=== PATIENT | female | born 1955 | race Caucasian/White ===

== ENCOUNTER 2017-11-17 10:00 | Outpatient (CLI) | payer OTHER | END 2017-11-17 10:02 | LOC: LAB 10:00 | PROVIDERS: ATTEND Family Medicine | DX: E03.8 Other specified hypothyroidism (principal); E11.9 Type 2 diabetes mellitus without complications | CPT/HCPCS: 36415; 83036; 84443 ==

== ENCOUNTER 2018-03-17 08:48 | Outpatient (CLI) | payer OTHER | END 2018-03-17 08:50 | LOC: LAB 08:48 | PROVIDERS: ATTEND Family Medicine | DX: E03.9 Hypothyroidism, unspecified (principal); E11.9 Type 2 diabetes mellitus without complications | CPT/HCPCS: 36415; 83036; 84443 ==

== ENCOUNTER 2018-07-28 15:06 | Outpatient (CLI) | payer OTHER ==
[2018-07-28 15:25] LABS: MEAN CORPUSCULAR HEMOGLOBIN 30.6 pg (28.0-34.0)
[2018-07-28 15:26] LABS: BASOPHILS % 0.8 (0.0-1.5); EOSINOPHILS % 3.5 % (0.0-6.8); MONOCYTES % 6.1 % (0.0-11.0); NEUTROPHILS # 3.8 # k/uL (1.4-7.7)
[2018-07-28 15:47] LABS: eGFR (Non-African) > 60
--- NOTE | 2018-07-28 16:16 | Diagnostic Imaging Report ---
SANDRA RESTREPO [facility] [id number] [facility] [address] 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 Findings: Single view obtained of the abdomen. No abnormal dilation of the large or small bowel. Moderate stool throughout the large bowel. No suspicious calcification projecting over the renal fossa or the lower pelvic region. Lumbar degenerative changes and fixation hardware. Impression: Moderate large bowel stool. No obstruction. No suspicious calcifications by plain film sensitivity. Electronically signed on Jul 28, 2018 4:13:34 PM DIE SINKER APPRENTICE by: Woo CARO
== END 2018-07-28 15:08 ==
LOC: LAB 15:06
PROVIDERS: ATTEND Family Medicine
DX: R10.84 Generalized abdominal pain (principal)
CPT/HCPCS: 36415; 74018; 80053; 85025

== ENCOUNTER 2018-12-09 08:53 | Outpatient (CLI) | payer MEDICARE, OTHER | END 2018-12-09 08:55 | LOC: LAB 08:53 | PROVIDERS: ATTEND Family Medicine | DX: E03.9 Hypothyroidism, unspecified (principal) | CPT/HCPCS: 36415; 84443 ==

== ENCOUNTER 2019-03-02 21:09 | Emergency (ER) | payer MEDICARE, OTHER ==
--- NOTE | 2019-03-02 21:26 | ED Physician Documentation ---
Foot Injury - HISTORIAN Historian: patient - HPI Chief Complaint: Foot Injury Additional Information: Patient is a 63 year old female who presents to the ER with c/o right foot/ankle pain s/p trip today around 11:30. Patient was wearing flip flops and the right shoe rolled under causing her foot to roll forward; she initially did not feel that she was injured. She sat for awhile and when she got up to walk she was having a lot of pain. She states that she felt a pop. Onset: hours Where: home Severity: mild Context: twist Associated Symptoms:: swelling, snapping sensation, unable to bear weight Modifying Factors:: pain on movement - ROS CONST: no problems CVS/RESP: none NEURO: denies: head injury GI/: denies: nausea, vomiting MS/SKIN/LYMPH: back pain (chronic), foot swelling - PAST HX Past History: other (HTN, Hypothyroid, Depression) Immunizations: UTD Allergies/Adverse Reactions: Allergies Allergy/AdvReac Type Severity Reaction Status Date / Time povidone-iodine Allergy Unknown Verified 03/02/19 21:28 [From Betadine] soap [From Betadine] Allergy Unknown Verified 03/02/19 21:28 - SOCIAL HX Smoking History: greater than 1 pack/day Alcohol Use: occasionally Drug Use: marijuana - FAMILY HX Family History: none - REVIEWED ASSESSMENTS Nursing Assessment Reviewed: Yes Vitals Reviewed: Yes ED Results Lab/Radiology - Radiology Radiology Impressions: Right foot, three views. History: FOOT PAIN S/P MISTEPPED IN FLIP FLOPS Findings: The osseous structures are intact without acute fracture. The joint space and alignment are normal. There is no soft tissue swelling. Impression: 1. No acute osseous abnormality. Electronically signed by: Dr. Wellington Rosales Right ankle, three views History: RIGHT ANKLE TWISTED Findings: The osseous structures are intact without acute fracture. The ankle mortise is normal . There is no soft tissue swelling. Impression: 1. No acute osseous abnormality. Electronically signed by: Dr. Wellington Rosales - Orders Orders: ED Orders Category Date Time Status ANKLE 3 VIEWS OR MORE [RAD] Stat Exams 03/02/19 Ordered FOOT 3 VIEWS OR MORE [RAD] Stat Exams 03/02/19 Ordered Foot Injury Physical Exam - Physical Exam General Appearance: no acute distress, alert Foot: right foot: limited range of motion, pain, soft tissue tenderness, swelling Ankle: right: limited range of motion, soft tissue tenderness Gait: limited by pain Neuro: sensation nml, motor nml Vascular: no vascular compromise Tendons: tendon function nml Leg/Knee/Thigh: uninjured above ankle Skin: intact, warm, dry Head/ENT: nml inspection Neck/Back: tenderness Resp/CVS: breath sounds nml, heart sounds nml Discharge Clincal Impression: Contusion of right foot Referrals: Doris Howard MD [Primary Care Provider] - 2 Days Additional Instructions: Wear ijeoma wrap for support Alternate Tylenol and Ibuprofen as needed Ice and Elevate Will send refer to follow up with Dr. Campbell Condition: Stable Disposition: 01 HOME, SELF-CARE Decision to Admit: NO Decision Time: 05:00
[2019-03-02 21:31] VITALS: BP 134/68
--- NOTE | 2019-03-02 21:39 | Diagnostic Imaging Report ---
PATIENT MR#: [id number] PATIENT PATIENT NAME: CHATO TORRES DATE OF : 1955 REFERRING PHYSICIAN: Darling Turner EXAM DATE: 03/02/2019 ACCESSION NUMBER: [id number] EXAM DESCRIPTION: FOOT 3 VIEWS OR MORE Right foot, three views. History: FOOT PAIN S/P MISTEPPED IN FLIP FLOPS Findings: The osseous structures are intact without acute fracture. The joint space and alignment are normal. There is no soft tissue swelling. Impression: 1. No acute osseous abnormality. Read by: Dr. Wellington Rosales Transcribed by: Transcribed Date: Electronically signed by: Dr. Wellington Rosales Date signed: 03/02/2019 9:38:27 PM
--- NOTE | 2019-03-02 21:41 | Diagnostic Imaging Report ---
PATIENT MR#: [id number] PATIENT PATIENT NAME: CHATO TORRES DATE OF : 1955 REFERRING PHYSICIAN: Darling Turner EXAM DATE: 03/02/2019 ACCESSION NUMBER: [id number] EXAM DESCRIPTION: ANKLE 3 VIEWS OR MORE Right ankle, three views History: RIGHT ANKLE TWISTED Findings: The osseous structures are intact without acute fracture. The ankle mortise is normal . The re is no soft tissue swelling. Impression: 1. No acute osseous abnormality. Read by: Dr. Wellington Rosales Transcribed by: Transcribed Date: Electronically signed by: Dr. Wellington Rosales Date signed: 03/02/2019 9:41:27 PM
== END 2019-03-02 21:52 | disposition home or self-care (01) ==
LOC: ED 21:09
DX: S99.921A Unspecified injury of right foot, initial encounter (principal); W01.0XXA Fall on same level from slipping, tripping and stumbling without subsequent striking against object, initial encounter
CPT/HCPCS: 73610; 73630; 99282; 99284

== ENCOUNTER 2019-03-11 08:56 | Outpatient (CLI) | payer MEDICARE, MEDICAID ==
[2019-03-23 09:16] LABS: A1C 5.2 % (<5.7)
[2019-03-23 09:17] LABS: TSH 0.16 mIU/l (0.465-4.685)
== END 2019-03-11 09:05 ==
LOC: LAB 08:56
PROVIDERS: ATTEND Family Medicine
DX: E11.9 Type 2 diabetes mellitus without complications (principal); E03.9 Hypothyroidism, unspecified
CPT/HCPCS: 36415; 83036; 84439; 84443

== ENCOUNTER 2019-03-26 10:49 | Outpatient (CLI) | payer MEDICARE, MEDICAID ==
[2019-03-26 11:13] LABS: BASOPHILS % 0.8 % (0.0-1.5); NEUTROPHILS # 12.4 # k/uL (1.4-7.7)
[2019-03-26 11:52] LABS: eGFR (Non-African) > 60
== END 2019-03-26 10:54 ==
LOC: LAB 10:49
PROVIDERS: ATTEND Nurse Practitioner Family
DX: R19.7 Diarrhea, unspecified (principal); R53.1 Weakness
CPT/HCPCS: 36415; 80053; 85025

== ENCOUNTER 2019-03-30 11:10 | Outpatient (CLI) | payer MEDICARE, MEDICAID ==
[2019-03-30 11:59] LABS: BASOPHILS % 0.5 % (0.0-1.5)
== END 2019-03-30 11:15 ==
LOC: LAB 11:10
PROVIDERS: ATTEND Family Medicine
DX: R19.7 Diarrhea, unspecified (principal)
CPT/HCPCS: 36415; 85025

== ENCOUNTER 2019-06-14 09:04 | Outpatient (CLI) | payer MEDICARE, OTHER | END 2019-06-14 09:09 | LOC: LAB 09:04 | PROVIDERS: ATTEND Family Medicine | DX: E03.9 Hypothyroidism, unspecified (principal) | CPT/HCPCS: 36415; 84443 ==